=== PATIENT | male | born 1990 | race Hispanic/Latino ===

== ENCOUNTER 2018-05-31 11:42 | Emergency (ER) | payer SELFPAY ==
[~2018-05-31] VITALS: Ht 162.6 cm; Wt 63.3 kg
[2018-05-31 12:41] LABS: URINE BILIRUBIN - DIPSTICK NEGATIVE (NEGATIVE); URINE BLOOD DIPSTICK NEGATIVE (NEGATIVE); URINE CLARITY CLEAR; URINE COLOR YELLOW; URINE GLUCOSE - DIPSTICK NEGATIVE (NEGATIVE); URINE KETONE NEGATIVE (NEGATIVE); URINE LEUK ESTERASE NEGATIVE (NEGATIVE); URINE NITRITE - DIPSTICK NEGATIVE (Negative); URINE PROTEIN - DIPSTICK NEGATIVE (NEG-TRACE); URINE SPECIFIC GRAVITY <=1.005; URINE UROBILINOGEN - DIPSTICK 0.2 E.U./dL (0.2)
[2018-05-31 13:05] VITALS: BP 166/81
== END 2018-05-31 13:05 | disposition home or self-care (01) | DRG 728 ==
LOC: ED 11:42
PROVIDERS: Emergency Medicine
DX: A64 Unspecified sexually transmitted disease (principal)
CPT/HCPCS: J0561

== ENCOUNTER 2018-06-08 12:58 | Emergency (ER) | payer SELFPAY ==
[~2018-06-08] VITALS: Ht 162.6 cm; Wt 63.3 kg
[2018-06-08] MEDS ORDERED: MONISTAT SOOTHING1 % EX (13:34)
[2018-06-08 13:50] VITALS: BP 160/81
== END 2018-06-08 13:55 | disposition home or self-care (01) | DRG 728 ==
LOC: ED 12:58
DX: B37.49 Other urogenital candidiasis (principal); F17.210 Nicotine dependence, cigarettes, uncomplicated